=== PATIENT | male | born 1965 | race American Indian/Alaskan Native ===

== ENCOUNTER 2017-06-10 18:47 | Emergency (ER) | payer MEDICARE, MEDICAID ==
[2017-06-10] MEDS ORDERED: PROTAMINE SULFATE IV ONE (20:17)
[2017-06-10] MEDS ORDERED: NACL 0.9% IV ONE ×2 (20:17→21:15)
[2017-06-10] MEDS ORDERED: ATIVAN IV ONE (20:45)
[2017-06-10] MEDS ORDERED: NACL 0.9% 500 ML 500 ML IV ONE (21:12)
[2017-06-10] MEDS ORDERED: DDAVP IV ONE (21:15)
[2017-06-10 21:37] LABS: Hematocrit 30.6 % (35.5-45.6); Hemoglobin 9.8 gm/dl (11.8-15.2); Mean Corpuscular HGB Conc 32 % (32-34); Mean Corpuscular Hemoglobin 29 pg (28-32); Mean Corpuscular Volume 91 fl (84-94); Red Blood Count 3.39 M/mm3 (3.65-5.03); Red Cell Distribution Width 17.1 % (13.2-15.2)
[2017-06-10 21:43] LABS: White Blood Count 2.3 K/mm3 (4.5-11.0)
[2017-06-10 21:46] LABS: INR 1.06 (0.87-1.13)
[2017-06-10 21:47] LABS: Partial Thromboplastin Time 55.3 Sec. (24.2-36.6)
--- NOTE | 2017-06-10 21:49 | Emergency Department Report ---
ED General Adult HPI - General Chief complaint: Extremity Injury, Upper Stated complaint: bleeding from shunt Time Seen by Provider: 06/10/17 20:10 Source: patient, EMS Mode of arrival: Stretcher Limitations: No Limitations - History of Present Illness Initial comments: Sent from HD after dialysis with bleeding left AV access site. Patient states he is in the process of obtaining kidney liver transplant at [place]. Just recently started hemodialysis 3 months ago. Patient states "chronic history of cirrhosis secondary to alcohol abuse.:' also hx of dm. He is reevaluation post hemodialysis access site bleeding. Severity scale (0 -10): 0 - Related Data Previous Rx's Medication Instructions Recorded Last Taken Type Clindamycin [Clindamycin CAP] 300 mg PO QID 3 Days capsule 04/06/15 Unknown Rx Furosemide [Lasix TAB] 40 mg PO 0600,1800 #60 tablet 04/06/15 Unknown Rx HYDROcodone/APAP 5-325 [[place] 1 each PO Q4HR PRN #20 tablet 04/06/15 Unknown Rx 5/325] Lisinopril [Zestril TAB] 10 mg PO QDAY #30 tablet 04/06/15 Unknown Rx glipiZIDE [Glucotrol] 10 mg PO QDAY #30 tablet 04/06/15 Unknown Rx hydrALAZINE [Apresoline TAB] 50 mg PO Q8HR #90 tablet 04/06/15 Unknown Rx Metoprolol [Lopressor TAB] 75 mg PO BID #60 tablet 04/07/15 Unknown Rx Allergies Allergy/AdvReac Type Severity Reaction Status Date / Time No Known Allergies Allergy Verified 03/25/15 21:48 ED Review of Systems ROS: Stated complaint: bleeding from shunt Other details as noted in HPI Comment: All other systems reviewed and negative Constitutional: denies: diaphoresis, fever, malaise, weakness Respiratory: denies: shortness of breath, SOB with exertion, SOB at rest, stridor Cardiovascular: denies: chest pain, palpitations, syncope Gastrointestinal: denies: diarrhea, constipation, hematemesis, melena Neurological: denies: headache, weakness, numbness, paresthesias ED Past Medical Hx - Past Medical History Hx Hypertension: Yes Hx Congestive Heart Failure: No Hx Diabetes: Yes Hx Asthma: No Hx COPD: No - Social History Substance Use Type: Alcohol - Medications Home Medications: Home Medications Medication Instructions Recorded Confirmed Last Taken Type Clindamycin [Clindamycin CAP] 300 mg PO QID 3 Days capsule 04/06/15 Unknown Rx Furosemide [Lasix TAB] 40 mg PO 0600,1800 #60 tablet 04/06/15 Unknown Rx HYDROcodone/APAP 5-325 [[place] 1 each PO Q4HR PRN #20 tablet 04/06/15 Unknown Rx 5/325] Lisinopril [Zestril TAB] 10 mg PO QDAY #30 tablet 04/06/15 Unknown Rx glipiZIDE [Glucotrol] 10 mg PO QDAY #30 tablet 04/06/15 Unknown Rx hydrALAZINE [Apresoline TAB] 50 mg PO Q8HR #90 tablet 04/06/15 Unknown Rx Metoprolol [Lopressor TAB] 75 mg PO BID #60 tablet 04/07/15 Unknown Rx ED Physical Exam - General Limitations: No Limitations General appearance: alert, in no apparent distress - Head Head exam: Absent: atraumatic - Eye Eye exam: Present: normal appearance, PERRL, EOMI Pupils: Present: normal accommodation - ENT ENT exam: Present: normal exam, normal orophraynx - Neck Neck exam: Present: normal inspection. Absent: tenderness, meningismus - Respiratory Respiratory exam: Present: normal lung sounds bilaterally. Absent: respiratory distress, wheezes - Cardiovascular Cardiovascular Exam: Present: regular rate. Absent: systolic murmur, rubs, gallop - GI/Abdominal GI/Abdominal exam: Present: soft. Absent: distended, tenderness, guarding, rebound - Extremities Exam Extremities exam: Present: other (losing fistual site left arm) - Back Exam Back exam: Present: normal inspection. Absent: CVA tenderness (L), paraspinal tenderness - Neurological Exam Neurological exam: Present: alert, oriented X3, CN II-XII intact. Absent: motor sensory deficit ED Course Vital Signs 06/10/17 06/10/17 06/10/17 18:48 19:24 19:30 Temperature 98.5 F 99.2 F Pulse Rate 90 70 Respiratory 18 16 Rate Blood Pressure 190/90 204/96 Blood Pressure 186/95 [Right] O2 Sat by Pulse 99 100 100 Oximetry 06/10/17 06/10/17 06/10/17 20:00 20:30 21:00 Temperature Pulse Rate Respiratory Rate Blood Pressure 184/94 184/94 184/94 Blood Pressure [Right] O2 Sat by Pulse 98 100 100 Oximetry 06/10/17 06/10/17 06/10/17 21:30 22:00 22:30 Temperature Pulse Rate Respiratory Rate Blood Pressure 162/90 162/90 157/92 Blood Pressure [Right] O2 Sat by Pulse 100 99 98 Oximetry 06/10/17 06/10/17 06/10/17 23:00 23:17 23:30 Temperature 98.1 F 98.2 F Pulse Rate 81 74 Respiratory 16 16 Rate Blood Pressure 121/65 129/71 107/77 Blood Pressure [Right] O2 Sat by Pulse 88 100 100 Oximetry 06/11/17 06/11/17 06/11/17 00:00 00:28 00:30 Temperature 98.2 F Pulse Rate 80 Respiratory 16 Rate Blood Pressure 145/81 143/88 125/84 Blood Pressure [Right] O2 Sat by Pulse 96 100 100 Oximetry 06/11/17 01:00 Temperature Pulse Rate Respiratory Rate Blood Pressure 133/72 Blood Pressure [Right] O2 Sat by Pulse 100 Oximetry ED Medical Decision Making - Lab Data Result diagrams: 06/10/17 21:26 06/10/17 20:43 - Medical Decision Making ED course patient arrived via pressure dressing in place we did replace this with Gelfoam for Beni wrap he did have persistent oozing to this it therefore was necessary to make it quite tight. Laboratory studies were obtained patient was given fresh frozen plasma and DDAVP H&H was stable coags had mildly elevated PTT patient was observed in ED with no further bleeding for several hours we did discuss with patient and we will consider admission given the amount of time it took for the bleeding to slow down and he is refusing that at this time. He is awake alert oriented 3 and nontoxic. He is worth the risks including loss of extremity exsanguination and and verbalizes understanding he did sign AMA Critical care attestation.: If time is entered above; I have spent that time in minutes in the direct care of this critically ill patient, excluding procedure time. ED Disposition Clinical Impression: Problem with vascular access Disposition: DC-07 LEFT AGAINST MED ADVICE Is pt being admited?: No Condition: Stable Instructions: Postoperative Bleeding (ED) Additional Instructions: Return immediately if new or alarming symptoms see her doctor in 1 day or call 911 for worse bleeding Referrals: PRIMARY MD KEYANNA [Primary Care Provider] - 3-5 Days Forms: AMA Form Time of Disposition: 02:00
[2017-06-10 22:12] LABS: Albumin 2.5 g/dL (3.9-5); Albumin/Globulin Ratio 0.6 %; Bilirubin,Total 1.1 mg/dL (0.1-1.2); Calcium 7.4 mg/dL (8.4-10.2); Chloride 97.1 mmol/L (98-107); Potassium 3.2 mmol/L (3.6-5.0); Total Protein 6.4 g/dL (6.3-8.2)
[2017-06-10 22:31] LABS: Basophils % (Manual) 0 % (0.0-1.8); Blastocytes % (Manual) 0 %
[2017-06-10 22:34] LABS: Anisocytosis 1+; Diff Status Complete; Hypochromasia 1+; Ovalocytes 1+; Platelet Estimate Appears Decreased; Tear Drop Cells Few
[2017-06-10 22:35] LABS: Platelet Count 77 K/mm3 (140-440)
[2017-06-11 01:51] VITALS: BP 133/72
== END 2017-06-11 01:50 | disposition left against medical advice (07) ==
LOC: ED 18:47
DX: T82.838A Hemorrhage due to vascular prosthetic devices, implants and grafts, initial encounter (principal); I10 Essential (primary) hypertension; E11.9 Type 2 diabetes mellitus without complications
CPT/HCPCS: 36415; 80053; 85007; 85610; 85730; 86850; 86900; 86901; 96365; 96375; 99284; A6021; J2060; J2597; J2720; P9017